=== PATIENT | female | born 1950 | race Caucasian/White ===

== ENCOUNTER 2024-02-15 06:28 | Inpatient (IN) | payer MEDICARE, OTHER, SELFPAY ==
--- NOTE | 2024-01-11 09:58 | CM ---
Patient is scheduled for an elective R TKR on 02/15/24. Spoke with patient prior to surgery via telephone. Patient had L TKR at in 2018. Reintroduced role of Orthopedic Navigator. Patient reports that she lives with her in a two story home.
There is one step to enter. She has a first floor set up. She currently functions independently. She has a cane and rolling walker. She has never had VN services. PCP is Naima Garcia.
Discussed orthopedic program and post surgical plans. Reviewed anticipated length of stay and that goal is for her to return home at discharge. Also reviewed outpatient PT. Patient is in agreement with tentative plan and states that her will
be able to provide support if needed. She will go directly to outpatient PT and will come to [facility].
Patient will complete online education.
Plan: Orthopedic Navigator will remain available to assist with the care of patient and will reassess discharge needs after surgery.
[2024-01-20 14:26] VITALS: BMI 25.6
[2024-01-20 14:52] LABS: Hematocrit 41.9 % (37.0-47.0); Hemoglobin 14.3 g/dL (12.0-16.0); Mean Corp Hgb Conc. 34.1 g/dL (33.0-37.0); Mean Corpuscular Hgb 31.7 pg (27.0-31.0); Mean Corpuscular Volume 92.9 fL (81.0-99.0); Mean Platelet Volume 11.8 fL (7.4-10.4); Platelet Count 169 10^3/uL (130-400); Red Blood Cell Count 4.51 10^6/uL (4.20-5.40); White Blood Cell Count 4.8 10^3/uL (4.8-10.8)
[2024-01-20 15:06] VITALS: BMI 25.6
[2024-01-20 15:42] LABS: ALT (SGPT) 27 U/L (0-35); AST (SGOT) 38 U/L (14-36); Albumin 4.2 g/dl (3.5-5.0); Alkaline Phosphatase 73 U/L (38-126); Blood Urea Nitrogen 12 mg/dl (7-17); Calcium 9.8 mg/dl (8.4-10.2); Carbon Dioxide 29 mmol/L (22-30); Chloride 103 mmol/L (98-107); Estimated Creatinine Clearance 59 ml/min; Glucose 81 mg/dl (70-99); Potassium 4.9 mmol/L (3.5-5.1); Sodium 136 mmol/L (135-145); Total Bilirubin 1.3 mg/dl (0.2-1.3); eGFR > 60.00
[2024-01-21 08:54] LABS: Glycohemoglobin (HgbA1c) 5.6 % (4.0-5.6)
[2024-02-15] VITALS (19 sets, daily range): BP systolic 89–126; BP diastolic 53–73; BMI 25.6
[2024-02-15] MEDS: CELEBREX 200 MG PO (10:01)
[2024-02-15] MEDS: TYLENOL 650 MG PO ×2 (10:02→19:49)
[2024-02-15] MEDS: NORMOSOL-R 1000 IV ×2 (10:12→15:36)
[2024-02-15] MEDS: SUBLIMAZE 25 MCG IV ×2 (14:40→15:03)
[2024-02-15] MEDS: ROXICODONE 5 MG PO (15:36)
--- NOTE | 2024-02-15 17:37 | PTCARENOTE ---
Patient received from PACU in bed; IVF infusing; Surgical site assessed with INFORMATION SECURITY DIRECTOR; Right knee monserrat C/D/I; Bed in lowest position, wheels locked; Call Mahmood within reach; Patient oriented to room and unit; Assessment ongoing
[2024-02-15] MEDS: TYLENOL PO (17:44)
[2024-02-15] MEDS: ASPIRIN 325 MG PO (17:53)
[2024-02-15] MEDS: SENOKOT 17.1999999999999993 MG PO (19:48)
[2024-02-15] MEDS: COLACE 100 MG PO (19:48)
[2024-02-15] MEDS: TORADOL 15 MG IV (19:49)
[2024-02-15] MEDS: ANCEF 5 IV (19:49)
[2024-02-15] MEDS: BACTROBAN 2% OINTMENT 1 APPLIC NASAL (19:50)
[2024-02-15] MEDS: DECADRON 4 MG PO (22:28)
[2024-02-15] MEDS: LYRICA 100 MG PO (22:29)
[2024-02-15] MEDS: CELEXA 20 MG PO (22:30)
[2024-02-16] MEDS: TYLENOL PO (00:41)
[2024-02-16 03:20] VITALS: BP 90/57
[2024-02-16] MEDS: TYLENOL 650 MG PO ×3 (04:57→11:34)
[2024-02-16] MEDS: ANCEF 5 IV (04:58)
[2024-02-16 07:35] VITALS: BP 92/52
[2024-02-16] MEDS: DECADRON 4 MG PO (08:19)
[2024-02-16] MEDS: ASPIRIN 325 MG PO (08:20)
[2024-02-16] MEDS: SENOKOT 17.1999999999999993 MG PO (08:20)
[2024-02-16] MEDS: COLACE 100 MG PO (08:21)
[2024-02-16] MEDS: MOBIC 15 MG PO (08:21)
[2024-02-16] MEDS: VISBIOME 1 CAP PO (08:21)
[2024-02-16] MEDS: TORADOL 15 MG IV (08:21)
[2024-02-16] MEDS: BACTROBAN 2% OINTMENT 1 APPLIC NASAL (08:22)
--- NOTE | 2024-02-16 08:42 | CM ---
Addendum entered by Imani Chase 02/16/24 12:47:
Patient did well in therapy. She has no concerns about discharge plans.
Original Note:
Reviewed chart and held rounds with PT, OT and nursing. Patient admitted as planned for elective R TKR. Met with patient at bedside. Confirmed information previously obtained for assessment. Also discussed discharge plans. The plan is for patient to
return home at discharge. She will have support from her when she goes home. Patient will go directly to outpatient PT and will go to [facility]. She has an appointment scheduled for Thursday, 02/16.
Patient has a rolling walker and cane.
She will use [facility] pharmacy for discharge prescriptions.
Discharge plans were [id number] with patient's on 02/14.
[2024-02-16 09:15] VITALS: BP 88/56; BP 90/58; PULSE 83; O2SAT 96
--- NOTE | 2024-02-16 10:02 | W.PN.ORTHO ---
Today's Communication / Plan
-
d/c
Assessment
.
Distal Motor Intact: Yes
Dressing:
Clean, dry and intact.
Assessment:
Hypotension-Midodrine IVF bolus prior to d/c--BP low at baseline-asx
Plan
.
Surgery / Date: Gabrielle Patel 02/15/24
DVT Prophylaxis: Aspirin
Activity:
Out of bed.
PT/OT
Discharge Plan: Home w/ Outpatient PT
Subjective
.
.:
Patient resting comfortably.
Vital Signs and Labs
.
Vital Signs and Labs:
Lab Results
01/20/24 13:32
01/20/24 13:32
Temp Pulse Resp BP Pulse Ox
98.1 F 85 16 92/52 100
02/16/24 07:35 02/16/24 07:35 02/16/24 07:35 02/16/24 07:35 02/16/24 07:35
Non-invasive Hgb result: 12.8
Physical Exam
-
HEENT: No pallor, cyanosis, or jaundice. Throat clear.
NECK: Supple. No JVD.
RESPIRATORY: Lungs clear to auscultation.
CVS: S1, S2 normal. RRR.� No murmur, rub or gallop.
ABDOMEN: Soft, non-tender. No distension. BS+/normal.
EXTREMITIES: strength equal, no calf pain with palpation
INFORMATION CONSULTANT: AOx3. No focal deficits. forest pathology teacher grossly intact
--- NOTE | 2024-02-16 10:17 | W.DS.TRANS ---
DC Summary - [employer]
-
Discharge Instructions:
Sleep Apnea Risk Low
Discharge Diagnosis/Procedures R TKA Dr. Patel 02/15/24
Diet As tolerated
Activity With Walker
Driving Restrictions No driving
Bathing Restrictions OK to Shower
Other Services PT
Instructions:
Stand-Alone Forms: Total Hip/Knee Replacement D/C
Changes to Home Medications: Yes
Discharge Medications:
DC Medications w/original date entered in [employer]
citalopram 20 mg tablet 20 mg PO HS Mental Health/Anxiety 01/12/10
Probiotic 1 tab PO DAILY Gastrointestinal Issue 01/15/24
[id number] 250 mg-40 mg-5 mg-125 unit tablet 1 tab PO DAILY Supplement 01/15/24
denosumab 60 mg/mL subcutaneous syringe (Prolia) 60 mg SC [id number] MONOCLONAL ANTIBODY 01/15/24
pregabalin 50 mg capsule (Lyrica) 50 mg PO HS Neurological Condition 01/15/24
mupirocin 2 % topical ointment 1 applic topical BID infection prevention #1 tube 01/20/24
acetaminophen 500 mg tablet 1,000 mg (2 x 500 mg) PO QID #0 tabs 02/16/24
aspirin 325 mg tablet 325 mg PO DAILY blood clot prevention #1 tab 02/16/24
dexamethasone 4 mg tablet 4 mg PO BID inflammation #6 tabs 02/16/24
docusate sodium 100 mg capsule (Colace) 100 mg PO BID stool softner #1 cap 02/16/24
famotidine 20 mg tablet 20 mg PO HS GI prophylaxis #30 tabs 02/16/24
gabapentin 300 mg capsule 300 mg PO HS sleep/pain #10 caps 02/16/24
magnesium hydroxide 400 mg/5 mL oral suspension (Milk of Magnesia) 30 ml PO HS PRN Constipation #1 mL 02/16/24
meloxicam 15 mg tablet 15 mg PO DAILY anti-inflammatory #14 tabs 02/16/24
oxycodone 5 mg tablet 5 mg PO Q6H PRN 1 tab moderate pain, 2 tabs severe pain #30 tabs 02/16/24
sennosides 8.6 mg tablet (Senokot) 17.2 mg (2 x 8.6 mg) PO BID laxative #2 tabs 02/16/24
Home Medication Changes
dexamethasone 4 mg tablet 4 mg PO BID inflammation #6 tabs 02/16/24
famotidine 20 mg tablet 20 mg PO HS GI prophylaxis #30 tabs 02/16/24
gabapentin 300 mg capsule 300 mg PO HS sleep/pain #10 caps 02/16/24
meloxicam 15 mg tablet 15 mg PO DAILY anti-inflammatory #14 tabs 02/16/24
oxycodone 5 mg tablet 5 mg PO Q6H PRN 1 tab moderate pain, 2 tabs severe pain #30 tabs 02/16/24
Pending Results: No
[2024-02-16] MEDS: NORMOSOL-R 500 IV (10:24)
[2024-02-16] MEDS: ProAmatine 5 MG PO (10:24)
[2024-02-16 11:34] VITALS: BP 113/60
[2024-02-16 12:31] VITALS: BP 102/60; PULSE 67; O2SAT 98
== END 2024-02-16 13:33 | disposition home or self-care (01) | DRG 470 ==
LOC: 2 SOUTH 06:28
PROVIDERS: ADMITTING PHYSICIAN Specialist; FAMILY PHYSICIAN Internal Medicine
PROC: 0SRC0J9 Replacement of Right Knee Joint with Synthetic Substitute, Cemented, Open Approach (ICD-10-PCS; 2024-02-15)
DX: M17.11 Unilateral primary osteoarthritis, right knee (principal); K21.9 Gastro-esophageal reflux disease without esophagitis; K57.30 Diverticulosis of large intestine without perforation or abscess without bleeding; G62.9 Polyneuropathy, unspecified; K58.1 Irritable bowel syndrome with constipation; I95.9 Hypotension, unspecified
CPT/HCPCS: 36415; 73560; 80053; 83036; 85027; 87070; 93005; 97110; 97116; 97162; 97166; 97530; 97535; C1713; C1776

== ENCOUNTER 2024-03-07 14:52 | Outpatient (RCR) | payer MEDICARE, OTHER, SELFPAY | END 2024-03-07 23:59 | disposition home or self-care (01) | LOC: RPT 14:52 | PROVIDERS: ATTENDING PHYSICIAN Specialist; FAMILY PHYSICIAN Internal Medicine | DX: Z47.1 Aftercare following joint replacement surgery (principal); R26.89 Other abnormalities of gait and mobility; R26.2 Difficulty in walking, not elsewhere classified; M62.81 Muscle weakness (generalized); Z96.651 Presence of right artificial knee joint | CPT/HCPCS: 97010; 97110; 97162 ==

== ENCOUNTER 2024-03-29 10:49 | Outpatient (RCR) | payer MEDICARE, OTHER, SELFPAY | END 2024-03-29 23:59 | disposition home or self-care (01) | LOC: RPT 10:49 | PROVIDERS: ATTENDING PHYSICIAN Specialist; FAMILY PHYSICIAN Internal Medicine | DX: Z47.1 Aftercare following joint replacement surgery (principal); Z96.651 Presence of right artificial knee joint; R26.89 Other abnormalities of gait and mobility; M25.561 Pain in right knee; R26.2 Difficulty in walking, not elsewhere classified; M25.661 Stiffness of right knee, not elsewhere classified | CPT/HCPCS: 97010; 97110; 97112; 97140 ==

== ENCOUNTER 2024-04-13 15:58 | Outpatient (RCR) | payer MEDICARE, OTHER, SELFPAY | END 2024-04-13 23:59 | disposition home or self-care (01) | LOC: RPT 15:58 | PROVIDERS: ATTENDING PHYSICIAN Specialist; FAMILY PHYSICIAN Internal Medicine | DX: Z47.1 Aftercare following joint replacement surgery (principal); Z96.651 Presence of right artificial knee joint; R26.89 Other abnormalities of gait and mobility | CPT/HCPCS: 97110 ==